=== PATIENT | male | born 1960 | race Caucasian/White ===

== ENCOUNTER 2017-02-15 15:21 | Emergency (ER) | payer MEDICAID ==
[2017-02-15 15:22] VITALS: BMI 26.6
[2017-02-15 15:37] VITALS: TEMP 99
[2017-02-15] MEDS ORDERED: Apap-Butalbital-Caffeine 325-50-40mg Tab PO STA (16:15)
[2017-02-15] MEDS ORDERED: Apap-Butalbital-Caffeine 325-50-40mg Tab ONE (16:27)
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
[2017-02-15 17:07] VITALS: BP 162/90; PULSE 68; RESP 14
[2017-02-15 17:08] VITALS: O2SAT 97
== END 2017-02-15 17:19 | disposition home or self-care (01) ==
LOC: C.ER 15:21
DX: G43.909 Migraine, unspecified, not intractable, without status migrainosus (principal); G40.909 Epilepsy, unspecified, not intractable, without status epilepticus; S50.312A Abrasion of left elbow, initial encounter; S50.311A Abrasion of right elbow, initial encounter; S80.212A Abrasion, left knee, initial encounter; S80.211A Abrasion, right knee, initial encounter; Y04.2XXA Assault by strike against or bumped into by another person, initial encounter; Y93.55 Activity, bike riding; Y92.410 Unspecified street and highway as the place of occurrence of the external cause